=== PATIENT | male | born 1970 | race Caucasian/White ===

== ENCOUNTER 2019-07-15 14:02 | Inpatient (IN) | payer OTHER ==
[~2019-07-15] VITALS: Ht 182.9 cm; Wt 65.1 kg
[2019-07-15 15:00] LABS: BASOPHILS % (AUTO) 0.4 % (0.0-5.0); EOSINOPHILS % (AUTO) 0.8 % (0.0-8.0); HEMATOCRIT 42.4 % (42-54); LYMPHOCYTES % (AUTO) 9.8 % (21.0-51.0); MEAN CORPUSCULAR HEMOGLOBIN 30.2 pg (27.0-33.0); MEAN CORPUSCULAR HGB CONC 33.7 g/dL (32.0-36.0); MEAN CORPUSCULAR VOLUME 89.6 fL (79-99); MONOCYTES % (AUTO) 12.2 % (3.0-13.0); NEUTROPHILS % (AUTO) 76.5 % (40.0-77.0); PLATELET COUNT (AUTO) 304 K/uL (130-400); RED BLOOD CELL COUNT(AUTO) 4.73 MIL/uL (4.50-6.20); RED CELL DISTRIBUTION WIDTH 12.3 % (11.0-15.5); WHITE BLOOD COUNT (AUTO) 15.6 K/uL (4.8-10.8)
[2019-07-15 15:12] LABS: POTASSIUM 3.8 mmol/L (3.5-5.1)
[2019-07-15] MEDS ORDERED: CLINDAMYCIN 900 MG/D5% WATER 50 ML IV ONE (15:13)
[2019-07-15 15:17] LABS: ALBUMIN 3.2 g/dL (3.5-5.0); BILIRUBIN,TOTAL 0.7 mg/dL (0.2-1.0)
[2019-07-15] MEDS ORDERED: CLINDAMYCIN 900 MG/D5% WATER 50 ML IV SCH (16:15)
[2019-07-15] MEDS ORDERED: VANCOMYCIN 1GM+NS 250ML 250 ML IV ONE (16:32)
[2019-07-15] MEDS ORDERED: ACETAMINOPHEN 325 MG TAB PO PRN (17:15)
[2019-07-15] MEDS ORDERED: VANCOMYCIN PROTOCOL PER PHARMACY IV SCH (17:15)
[2019-07-15] MEDS ORDERED: ONDANSETRON HCL 4 MG/2 ML VIAL IVP PRN (17:15)
[2019-07-15] MEDS ORDERED: COMPOUND IV REFRIGERATED 1 EACH IVSOLN MISC PRN (18:15)
[2019-07-15] MEDS ORDERED: TETANUS/DIPHTHERIA TOXOID [ADULT] 0.5 ML VIAL IM ONE (19:48)
[2019-07-15] MEDS ORDERED: RENAL DOSE IV SCH (20:00)
--- NOTE | 2019-07-15 20:10 | NUR ---
ADMIT PT ADMITTED TO ROOM 412,AAOX3. DENIES ANY PAINS AT THIS TIME. NO DISTRESS NOTED. ADMISSION ASSESSMENT DONE. ADMISSION CARE DONE. ADMISSION DATA BASE COMPLETED. ORIENTED TO ROOM AND UNIT. IN FOR MORE CARE AND MANAGEMENT. Addendum: 07/15/19 at 2228 by SIDDHARTHA DURON RN RN Amended: Links added.
[2019-07-15 20:30] VITALS: BP 116/69
[2019-07-15] MEDS: FAMOTIDINE 20MG TAB 20 MG TAB PO SCH (20:49)
[2019-07-15] MEDS: ENOXAPARIN SODIUM 30 MG/0.3 ML SQ SCH (20:56)
[2019-07-15] MEDS: LEVOFLOXACIN 750 MG/D5W 150 ML 150 ML IV SCH (20:56)
[2019-07-15] MEDS: VANCOMYCIN 1.25 GM in SODIUM CHLORIDE 0.9% 250 ML IV SCH (22:38)
--- NOTE | 2019-07-15 23:46 | NUR ---
PAGED AJ, ELECTRICIAN REFINERY DIGITAL ART DIRECTOR FOR HOSPITALIST, PAGED VIA ANSWERING SERVICE. ELECTRICIAN REFINERY CALLED BACK AND REFERRED PT'S WOUNDS. NEW ORDERS GIVEN, PLEASE REFER TO CPOE. WILL SEND SPECIMENS TO LAB.
[2019-07-15 23:58] LABS: APPEARANCE,URINE Clear (CLEAR); BILIRUBIN,URINE Negative (NEGATIVE); COLOR,URINE Yellow (YELLOW); GLUCOSE, URINE (UA) Negative (NEGATIVE); KETONES,URINE Negative (NEGATIVE); LEUKOCYTE ESTERASE ,URINE Negative (NEGATIVE); NITRATE,URINE Negative (NEGATIVE); OCCULT BLOOD,URINE Negative (NEGATIVE); PROTEIN,URINE Negative (NEGATIVE)
[2019-07-16] VITALS (7 sets, daily range): BP systolic 93–120; BP diastolic 45–68
--- NOTE | 2019-07-16 02:00 | NUR ---
ROUNDS PT RESTING WELL, FAIRLY ASLEEP WITH RESPIRATIONS EVEN AND UNLABORED. NO DISTRESS NOTED. KEPT UNDISTURBED FOR NOW. WILL MONITOR PT. CALL LIGHT WITHIN REACH.
[2019-07-16 04:24] LABS: BASOPHILS % (AUTO) 0.4 % (0.0-5.0); EOSINOPHILS % (AUTO) 1.1 % (0.0-8.0); HEMATOCRIT 38.8 % (42-54); LYMPHOCYTES % (AUTO) 13.8 % (21.0-51.0); MEAN CORPUSCULAR HEMOGLOBIN 30.3 pg (27.0-33.0); MEAN CORPUSCULAR HGB CONC 33.5 g/dL (32.0-36.0); MEAN CORPUSCULAR VOLUME 90.4 fL (79-99); NEUTROPHILS % (AUTO) 70.2 % (40.0-77.0); PLATELET COUNT (AUTO) 290 K/uL (130-400); RED BLOOD CELL COUNT(AUTO) 4.29 MIL/uL (4.50-6.20); RED CELL DISTRIBUTION WIDTH 12.3 % (11.0-15.5); WHITE BLOOD COUNT (AUTO) 14.6 K/uL (4.8-10.8)
--- NOTE | 2019-07-16 05:00 | NUR ---
ROUNDS PT STILL ASLEEP. NO DISTRESS NOTED. KEPT UNDISTURBED. FOR MORE CARE.
[2019-07-16 05:07] LABS: AMPHET/METH SCREEN,URINE NEGATIVE (NEGATIVE); BARBITURATE SCREEN, URINE NEGATIVE (NEGATIVE); BENZODIAZEPINES SCREEN,URINE NEGATIVE (NEGATIVE); CANNABINOID SCREEN,URINE POSITIVE (NEGATIVE); COCAINE SCREEN,URINE NEGATIVE (NEGATIVE); OPIATE SCREEN,URINE NEGATIVE (NEGATIVE); PHENCYCLIDINE SCREEN,URINE NEGATIVE (NEGATIVE)
--- NOTE | 2019-07-16 10:09 | NUR ---
SELF REFERRAL PACKET MEET WITH PATIENT IN ROOM. PER PATIENT, DOES NOT HAVE INSURANCE OR PCP ESTABLISHED. SELF PAY REFERRAL PACKET WELL SELF PAY MEDICAL PACKET GIVEN ALONG WITH GOOD RX COUPON, PATIENT VERBALIZED UNDERSTANDING OF PACKETS.
--- NOTE | 2019-07-16 10:50 | NUR ---
DCP: HOME Sw met with pt who lives in [facility] alone. Pt is currently unemployed related to Coronavirus. Independent, no DME or in home care services. Pt states he has no PCP and is on no medications . "I have never been sick". [place] home [place]. Addendum: 07/16/19 at 1052 by CARLTON STONE SS Amended: Links added.
[2019-07-16] MEDS: ENOXAPARIN SODIUM 30 MG/0.3 ML SQ SCH (12:06)
[2019-07-16] MEDS: FAMOTIDINE 20MG TAB 20 MG TAB PO SCH ×2 (12:07→20:14)
[2019-07-16] MEDS: VANCOMYCIN 1.25 GM in SODIUM CHLORIDE 0.9% 250 ML IV SCH ×2 (12:07→22:55)
--- NOTE | 2019-07-16 16:15 | NUR ---
[facility] consult Patient assessed as ordered. Patient with wound to ankle (see assessment) and two scabs to Lt pretib area. [facility] recommendations submitted per protocol. Addendum: 07/17/19 at 0751 by BOWEN MITCHELL RN/ Amended: Links added.
--- NOTE | 2019-07-16 17:56 | NUR ---
DR. ALANA VERAS FOR DR. JOHNS DID A WOUND DRESSING AND ORDERED WOUND CARE; CLEANSE WITH NORMAL SALINE, BETADINE, 4X4 AND KERLIX. HE VERBALIZED THAT HE WILL ORDER DEBRIBEMENT FOR TOMORROW.
[2019-07-16] MEDS: LEVOFLOXACIN 750 MG/D5W 150 ML 150 ML IV SCH (20:14)
--- NOTE | 2019-07-16 20:15 | NUR ---
MEDS SHIFT ASSESSMENT DONE, PLEASE REFER TO CHART. DUE MEDS ADMINISTERED, TOLERATED WELL. INSTRUCTED TO BE NPO POST [place]. PT VERBALIZES UNDERSTANDING. KEPT RESTED AND COMFORTABLE. CALL LIGHT WITHIN REACH. Addendum: 07/17/19 at 0118 by SIDDHARTHA DURON RN RN Amended: Links added.
--- NOTE | 2019-07-16 21:15 | NUR ---
REPORT REPORT GIVEN TO CLARI PRATER. PT FOR MORE CARE AND MANAGEMENT.
[2019-07-17] VITALS (18 sets, daily range): BP systolic 100–130; BP diastolic 49–71
[2019-07-17] MEDS: ENOXAPARIN SODIUM 30 MG/0.3 ML SQ SCH (08:20)
[2019-07-17] MEDS: FAMOTIDINE 20MG TAB 20 MG TAB PO SCH ×2 (09:00→21:12)
[2019-07-17] MEDS: THIAMINE HCL 100 MG TABLET PO SCH (09:00)
[2019-07-17] MEDS: FOLIC ACID 1 MG TABLET PO SCH (09:00)
[2019-07-17] MEDS: VANCOMYCIN 1.25 GM in SODIUM CHLORIDE 0.9% 250 ML IV SCH ×2 (11:38→21:12)
[2019-07-17] MEDS ORDERED: PROPOFOL 1000 MG/100 ML 100 ML IV ONE (12:54)
[2019-07-17] MEDS ORDERED: MIDAZOLAM HCL 1 MG/ML 2ML VIAL ONE (13:04)
[2019-07-17] MEDS ORDERED: LIDOCAINE HCL 1% 20 ML VIAL ONE (13:04)
[2019-07-17] MEDS ORDERED: BUPIVACAINE/PF 0.5% 30ML VIAL ONE (13:04)
[2019-07-17] MEDS ORDERED: FENTANYL CITRATE PF 50 MCG/1 ML 2ML VIAL ONE (13:04)
[2019-07-17] MEDS ORDERED: LACTATED RINGERS 1000ML 1,000 ML IV ONE (13:08)
[2019-07-17] MEDS ORDERED: EPHEDRINE SULFATE 50 MG/ML AMPULE ONE (13:37)
[2019-07-17] MEDS: LEVOFLOXACIN 750 MG/D5W 150 ML 150 ML IV SCH (19:02)
[2019-07-17] MEDS: MORPHINE SULFATE 2 MG/ML 1ML SYG IVP PRN (19:03)
[2019-07-18] VITALS (7 sets, daily range): BP systolic 93–119; BP diastolic 51–69
[2019-07-18 04:07] LABS: POTASSIUM 4.4 mmol/L (3.5-5.1)
[2019-07-18 04:12] LABS: BASOPHILS % (AUTO) 0.7 % (0.0-5.0); EOSINOPHILS % (AUTO) 2.4 % (0.0-8.0); HEMATOCRIT 37.5 % (42-54); LYMPHOCYTES % (AUTO) 15.6 % (21.0-51.0); MEAN CORPUSCULAR HEMOGLOBIN 30.5 pg (27.0-33.0); MEAN CORPUSCULAR HGB CONC 33.1 g/dL (32.0-36.0); MEAN CORPUSCULAR VOLUME 92.4 fL (79-99); MONOCYTES % (AUTO) 10.8 % (3.0-13.0); NEUTROPHILS % (AUTO) 70.1 % (40.0-77.0); PLATELET COUNT (AUTO) 336 K/uL (130-400); RED BLOOD CELL COUNT(AUTO) 4.06 MIL/uL (4.50-6.20); RED CELL DISTRIBUTION WIDTH 12.1 % (11.0-15.5); WHITE BLOOD COUNT (AUTO) 9.6 K/uL (4.8-10.8)
[2019-07-18] MEDS: MORPHINE SULFATE 2 MG/ML 1ML SYG IVP PRN ×3 (04:43→17:24)
[2019-07-18] MEDS: HYDROMORPHONE HCL 0.5 MG/0.5 ML ML IVP PRN ×3 (07:01→21:17)
[2019-07-18] MEDS: FAMOTIDINE 20MG TAB 20 MG TAB PO SCH ×2 (09:32→21:17)
[2019-07-18] MEDS: THIAMINE HCL 100 MG TABLET PO SCH (09:33)
[2019-07-18] MEDS: ENOXAPARIN SODIUM 30 MG/0.3 ML SQ SCH (09:33)
[2019-07-18] MEDS: FOLIC ACID 1 MG TABLET PO SCH (09:33)
[2019-07-18] MEDS: VANCOMYCIN 1.25 GM in SODIUM CHLORIDE 0.9% 250 ML IV SCH (10:31)
[2019-07-18] MEDS ORDERED: PHARMACY COMMUNICATION MISC PRN (15:45)
[2019-07-18] MEDS ORDERED: CHLORDIAZEPOXIDE HCL 25 MG CAP PO PRN (15:45)
[2019-07-18] MEDS: LEVOFLOXACIN 750 MG/D5W 150 ML 150 ML IV SCH (21:17)
[2019-07-19] VITALS (7 sets, daily range): BP systolic 98–124; BP diastolic 51–69
[2019-07-19 04:40] LABS: BASOPHILS % (AUTO) 0.6 % (0.0-5.0); EOSINOPHILS % (AUTO) 4.2 % (0.0-8.0); HEMATOCRIT 37.8 % (42-54); LYMPHOCYTES % (AUTO) 20.1 % (21.0-51.0); MEAN CORPUSCULAR HEMOGLOBIN 30.3 pg (27.0-33.0); MEAN CORPUSCULAR HGB CONC 33.1 g/dL (32.0-36.0); MEAN CORPUSCULAR VOLUME 91.5 fL (79-99); NEUTROPHILS % (AUTO) 61.6 % (40.0-77.0); PLATELET COUNT (AUTO) 366 K/uL (130-400); RED BLOOD CELL COUNT(AUTO) 4.13 MIL/uL (4.50-6.20); RED CELL DISTRIBUTION WIDTH 12.1 % (11.0-15.5); WHITE BLOOD COUNT (AUTO) 8.9 K/uL (4.8-10.8)
[2019-07-19] MEDS: HYDROMORPHONE HCL 0.5 MG/0.5 ML ML IVP PRN ×4 (04:50→18:09)
[2019-07-19] MEDS: FOLIC ACID 1 MG TABLET PO SCH (08:32)
[2019-07-19] MEDS: FAMOTIDINE 20MG TAB 20 MG TAB PO SCH ×2 (08:32→20:16)
[2019-07-19] MEDS: THIAMINE HCL 100 MG TABLET PO SCH (08:32)
[2019-07-19] MEDS: ENOXAPARIN SODIUM 30 MG/0.3 ML SQ SCH (08:33)
[2019-07-19] MEDS: LEVOFLOXACIN 750 MG/D5W 150 ML 150 ML IV SCH (20:16)
[2019-07-19] MEDS ORDERED: TRAMADOL HCL 50 MG TABLET PO PRN (20:45)
[2019-07-19] MEDS: TRAMADOL HCL 50 MG TABLET PO PRN (21:59)
--- NOTE | 2019-07-19 22:59 | NUR ---
1956: Maria Teresa VERDUGO paged via answering service, patient requesting po pain medication since he is going home tomorrow. 2043: Maria Teresa VERDUGO returned the call informed her of above, orders given and transcribed. Patient informed would ,medicated him when medications available, verbilized understanding. 2158: Patient medicated for severe ,with tramadol 100 mg po. 2258: I checked on patient, denied anymore pain.
[2019-07-20] MEDS: TRAMADOL HCL 50 MG TABLET PO PRN ×2 (03:29→08:53)
[2019-07-20 04:00] VITALS: BP 125/77
[2019-07-20 08:00] VITALS: BP 116/51
[2019-07-20] MEDS ORDERED: THIA100T91 PO (08:31)
[2019-07-20] MEDS ORDERED: FOLI1 PO (08:31)
[2019-07-20] MEDS: FAMOTIDINE 20MG TAB 20 MG TAB PO SCH (08:52)
[2019-07-20] MEDS: FOLIC ACID 1 MG TABLET PO SCH (08:53)
--- NOTE | 2019-07-20 08:53 | NUR ---
RDSCREEN - BMI 19.5 Pt admitted with L-Leg cellulitis due to bug bite. Pt is s/p wound debridement, pending discharge. Pt is tolerating Regular diet order with no report of GI distress and good PO intake at 100%. Pt reports recent weight loss caused by decreased appetite due to stress but appetite has improved. No S/S of malnutrition. RD offered nutrition supplementation, to which Pt refused. Recommend continue Regular Diet Order. RD to continue to monitor. Please notify as additional nutrition concerns arise. Thank you. Addendum: 07/20/19 at [address] Amended: Links added.
[2019-07-20] MEDS: ENOXAPARIN SODIUM 30 MG/0.3 ML SQ SCH (08:54)
[2019-07-20] MEDS: THIAMINE HCL 100 MG TABLET PO SCH (08:54)
[2019-07-20 12:00] VITALS: BP 132/81
--- NOTE | 2019-07-20 14:20 | NUR ---
I CHANGED THE DRESSING ON PT'S LEFT ANKLE SURGICAL SITE; HE HAS A LARGE AREA OF SKIN DEBRIDEDED OFF WITH VASELINE GAUZE COVERING IT; I CLEANSED THE ANKLE WITH BETADINE AND NORMAL SALINE THE APPLIED VASELINE GAUZE, 4X4 GAUZE THEN KERLIX WRAP AND CHRISTIN WRAP; I INSTRUCTED THE PATIENT ON HOW TO DO THIS AT HOME AND HAVE GIVEN HIM EXTRA SUPLIES; I HAVE ALSO SPOKEN TO ILAN MACKEY IN REGARDS TO HER SAYING PT DOES NOT HAVE [employer] COVERAGE AND BEING SELF PAY; PT SHOWED ME A TEXT HE GOT FROM [employer]. ASKING HIM IF HE NEEDED ANYTHING; I HAVE ASKED NOIBI TO VISIT HIM AT BEDSIDE.
--- NOTE | 2019-07-20 14:50 | NUR ---
PT STATED UNDERSTANDING OF ALL D/C INSTRUCTIONS --WOUND CARE, SIGNS AND SYMPTOMS OF INFECTION TO REPORT TO MD, TO CALL [employer] TO GET F/U FOR MONITORING WOUND, USE OF WALKER TO LESSEN PRESSURE ON LEFT LEG WHEN AMBULATING; I HAVE GIVEN PT EXTRA SUPPLIES FOR DRESSING CHANGES; CW GREGG STATED SHE WOULD CALL HIM TUESDAY TO WORK ON GETTING A F/U THAT WILL TAKE [employer] FOR MONITORING WOUND;
--- NOTE | 2019-07-20 15:12 | NUR ---
LISETTE TO PT REGARDING COVERAGE- ADVISED HIM THAT WHEN I VISTED WITH HIM PREVIOUSLY THIS CM WAS ASKING FOR [employer] CM OR SENIOR INTERIOR DESIGNER --- PT STATES THIS INFO FWAS TAKEN BY THE HOSPITAL BUT DID NOT KNOW HAD TO PASS TO CM.. KAT STATES 'THEY SAID THEY WOULD LOOK AFTER EVERYTHING.' CALL TO CONRADO AT [employer]-[phone] WHO STATED THE SENIOR INTERIOR DESIGNER IS [employer], THE CLAIM IS #[id number] AT [employer] [id number] BUT INFORMATION IS STILL PENDING ON TYPE OF INSECT BITE TO DECIDE VALIDITY OF CLAIM. ASKED ABOUT COVERAGE FOR AFTERCARE, CONRADO STATED WOULD HAVE TO ASK SENIOR INTERIOR DESIGNER. ADVISED NOAM AT [facility] THAT DR. JOHNS WANTS PATIENT TO GO TO [facility]. NOAM STATES ASK DR. JOHNS AGAIN TO TAKE PATIENT, IF NOT, WE WILL SEE PATIENT. CALL PT AT HOME TO TELL OF APPOINTMENT-- WILL BE NEXT TUESDAY (A WEEK TUESDAY. ENCOURAGED PT TO FOLLOW [facility], PROVIDED MORE WOUND CARE SUPPLIES TO LAST UNTIL APPOINTMENT ADVISED PRIMARY RN AND
--- NOTE | 2019-07-20 17:00 | NUR ---
CALL IN MEDS REQUESTED BY PATIENT JAMEY CLAL FROM PATIENT TO CALL MEDS INTO [facility] SO HE CAN MOTOR VEHICLE REPRESENTATIVE CALLED REQUESTED, SPOKE TO HAN
--- NOTE | 2019-07-20 18:45 | NUR ---
SENT INFO TO [facility] TO FOLLOW UP WITH APPOINTMENT SENT EMAIL TO Barbara RUSHING, WHO HAS BEEN APPRISED OF THE SITUATION
== END 2019-07-20 15:00 | disposition home or self-care (01) | DRG 570 ==
LOC: EDH 14:02 → EDHIP 14:03 → 3BH 19:45
PROVIDERS: ADMIT Family Medicine; ATTEND Family Medicine
PROC: 3E0234Z Introduction of Serum, Toxoid and Vaccine into Muscle, Percutaneous Approach (ICD-10-PCS; 2019-07-17)
PROC: 0JBR0ZZ Excision of Left Foot Subcutaneous Tissue and Fascia, Open Approach (ICD-10-PCS; principal; 2019-07-17 13:17)
DX: L03.116 Cellulitis of left lower limb (principal); M72.6 Necrotizing fasciitis; L97.322 Non-pressure chronic ulcer of left ankle with fat layer exposed; L02.416 Cutaneous abscess of left lower limb; F17.210 Nicotine dependence, cigarettes, uncomplicated; W57.XXXA Bitten or stung by nonvenomous insect and other nonvenomous arthropods, initial encounter; Y93.89 Activity, other specified; Y92.89 Other specified places as the place of occurrence of the external cause; Y99.8 Other external cause status; Z23 Encounter for immunization
CPT/HCPCS: 36415; 73218; 73610; 73718; 76882; 80048; 80053; 80202; 80305; 81003; 83605; 84145; 85025; 85651; 86140; 87040; 87070; 87076; 87077; 87088; 87186; 87205; 90714; 93971; 97039; G0378; G0480; J1170; J1650; J1956; J2250; J2704; J3010; J3370; J3490; J7050; J7120